=== PATIENT | male | born 1970 | race Two or more races ===

== ENCOUNTER 2017-11-26 18:43 | Observation (INO) | payer MEDICAID ==
[~2017-11-26] VITALS: Ht 167.6 cm; Wt 86.0 kg
[2017-11-26 19:21] LABS: BASOPHILS # (AUTO) 0.03 x10^3/uL (0-0.1); BASOPHILS % (AUTO) 0 % (0-1); EOSINOPHILS % (AUTO) 5 % (1-7); LYMPHOCYTES # (AUTO) 1.35 x10^3/uL (1-3.4); LYMPHOCYTES % (AUTO) 16 % (22-44); MD NO; MEAN CORPUSCULAR HEMOGLOBIN 32.1 pg (27.5-34.5); MEAN CORPUSCULAR HGB CONC 34.7 g/dL (33.2-36.2); MEAN CORPUSCULAR VOLUME 92.5 fL (81-97); MEAN PLATELET VOLUME 7.5 fL (7.4-10.4); MONOCYTES # (AUTO) 1.06 x10^3/uL (0.2-0.8); MONOCYTES % (AUTO) 12 % (2-9); NEUTROPHILS % (AUTO) 67 % (42-75); PLATELET COUNT 268 x10^3/uL (130-400); RED BLOOD COUNT 4.59 x10^6/uL (4.38-5.82); RED CELL DISTRIBUTION WIDTH 12.9 % (9.4-14.8)
[2017-11-26 19:29] LABS: ALANINE AMINOTRANSFERASE 41 U/L (12-78); ALBUMIN 3.3 g/dL (3.4-5.0); ANION GAP 9 mmol/L (5-15); CALCIUM 8.6 mg/dL (8.5-10.1); CHLORIDE 101 mmol/L (98-107); CREATININE 0.86 mg/dL (0.7-1.3)
[2017-11-26 19:30] LABS: ACETAMINOPHEN < 2 mcg/mL (10-30); SALICYLATE LEVEL < 1.7 mg/dL (2.8-20.0)
[2017-11-26 19:33] LABS: ALKALINE PHOSPHATASE 69 U/L (45-117); BILIRUBIN,TOTAL 0.4 mg/dL (0.2-1.0); TOTAL PROTEIN 7.8 g/dL (6.4-8.2)
[2017-11-26 19:37] LABS: MICROSCOPIC INDICATED
[2017-11-26 19:44] LABS: CULTURE INDICATED? NO
[2017-11-26 19:46] LABS: AMPHETAMINE SCREEN, URINE Negative (Negative); BARBITURATE SCREEN, URINE Negative (Negative); BENZODIAZEPINE SCREEN, URINE Negative (Negative); CANNABINOID SCREEN, URINE Negative (Negative); COCAINE SCREEN, URINE Negative (Negative); METHADONE SCREEN, URINE Negative (Negative); OPIATE SCREEN, URINE Negative (Negative)
[2017-11-26] MEDS ORDERED: ONDANSETRON ODT 4 MG PO PRN (23:30)
[2017-11-26] MEDS ORDERED: ACETAMINOPHEN 325 MG TABLET PO PRN (23:30)
[2017-11-26] MEDS ORDERED: POTASSIUM CHLORIDE 20 MEQ TAB.ER.PRT PO ONE (23:30)
[2017-11-26] MEDS ORDERED: TRAZ100T15 PO (23:37)
[2017-11-26] MEDS ORDERED: ZIPR20CA2 PO (23:37)
[2017-11-26] MEDS ORDERED: FLUO20CA19 PO (23:37)
[2017-11-26] MEDS ORDERED: POTASSIUM CHLORIDE 20 MEQ TAB.ER.PRT ONE (23:38)
[2017-11-26 23:49] VITALS: BP 151/95
[2017-11-27] MEDS: TRAZODONE 150MG TABLET PO SCH ×2 (00:24→20:43)
[2017-11-27 07:30] VITALS: BP 111/65
[2017-11-27] MEDS: AMLODIPINE 5 MG TABLET PO SCH (09:00)
[2017-11-27] MEDS: HALOPERIDOL 5 MG TABLET PO PRN ×2 (13:06→20:43)
[2017-11-27 20:18] VITALS: BP 120/68
[2017-11-28 07:47] VITALS: BP 127/89
[2017-11-28] MEDS: AMLODIPINE 5 MG TABLET PO SCH (09:14)
[2017-11-28 20:22] VITALS: BP 123/71
[2017-11-28] MEDS: HALOPERIDOL 5 MG TABLET PO PRN (20:22)
[2017-11-28] MEDS: TRAZODONE 150MG TABLET PO SCH (21:00)
[2017-11-29 07:08] VITALS: BP 134/94
[2017-11-29] MEDS: AMLODIPINE 5 MG TABLET PO SCH (07:49)
[2017-11-29] MEDS: HALOPERIDOL 5 MG TABLET PO PRN (11:36)
[2017-11-29 18:53] VITALS: BP 121/84
[2017-11-29] MEDS: TRAZODONE 150MG TABLET PO SCH (20:39)
[2017-11-30 08:25] VITALS: BP 138/90
[2017-11-30] MEDS: AMLODIPINE 5 MG TABLET PO SCH (08:55)
[2017-11-30 19:31] VITALS: BP 114/69
[2017-11-30] MEDS: TRAZODONE 150MG TABLET PO SCH (21:14)
[2017-12-01 07:39] VITALS: BP 112/76
[2017-12-01] MEDS: AMLODIPINE 5 MG TABLET PO SCH (08:11)
[2017-12-01] MEDS: HALOPERIDOL 5 MG TABLET PO PRN ×2 (08:12→21:11)
[2017-12-01 20:00] VITALS: BP 111/84
[2017-12-01] MEDS: TRAZODONE 150MG TABLET PO SCH (21:51)
== END 2017-12-02 03:40 ==
LOC: ED 20:55 → EDIP 22:50 → 3E 23:46
PROVIDERS: ADMIT Hospitalist; ATTEND Hospitalist
DX: R45.851 Suicidal ideations (principal); F32.9 Major depressive disorder, single episode, unspecified; E87.6 Hypokalemia; I10 Essential (primary) hypertension; Z59.0 Homelessness
CPT/HCPCS: 36415; 80053; 80307; 80329; 81001; 85025; 99285; G0378; Q0177; G0480

== ENCOUNTER 2018-01-04 12:51 | Observation (INO) | payer MEDICAID, OTHER ==
[~2018-01-04] VITALS: Ht 167.6 cm; Wt 88.0 kg
[~2018-01-04 12:51] MED LIST: FLUO20CA19 PO; TRAZ100T15 PO; ZIPR20CA2 PO
[2018-01-04] MEDS ORDERED: TRAZ150T62 PO (13:37)
[2018-01-04] MEDS ORDERED: NALT50TA PO (13:37)
[2018-01-04 13:52] LABS: BASOPHILS # (AUTO) 0.03 x10^3/uL (0-0.1); BASOPHILS % (AUTO) 0 % (0-1); EOSINOPHILS # (AUTO) 0.08 x10^3/uL (0-0.4); EOSINOPHILS % (AUTO) 1 % (1-7); LYMPHOCYTES # (AUTO) 2.31 x10^3/uL (1-3.4); LYMPHOCYTES % (AUTO) 26 % (22-44); MD NO; MEAN CORPUSCULAR HEMOGLOBIN 31.8 pg (27.5-34.5); MEAN CORPUSCULAR VOLUME 90.9 fL (81-97); MEAN PLATELET VOLUME 7.8 fL (7.4-10.4); MONOCYTES % (AUTO) 11 % (2-9); NEUTROPHILS # (AUTO) 5.42 x10^3/uL (1.8-6.8); NEUTROPHILS % (AUTO) 61 % (42-75); PLATELET COUNT 266 x10^3/uL (130-400); RED BLOOD COUNT 4.95 x10^6/uL (4.38-5.82); RED CELL DISTRIBUTION WIDTH 13.5 % (9.4-14.8)
[2018-01-04 14:02] LABS: ALBUMIN 4.2 g/dL (3.4-5.0); ANION GAP 7 mmol/L (5-15); CALCIUM 9.1 mg/dL (8.5-10.1); CHLORIDE 103 mmol/L (98-107); CREATININE 1.05 mg/dL (0.7-1.3)
[2018-01-04 14:05] LABS: ACETAMINOPHEN < 2 mcg/mL (10-30); SALICYLATE LEVEL < 1.7 mg/dL (2.8-20.0)
[2018-01-04 14:11] LABS: AMPHETAMINE SCREEN, URINE Negative (Negative); BARBITURATE SCREEN, URINE Negative (Negative); BENZODIAZEPINE SCREEN, URINE Negative (Negative); CANNABINOID SCREEN, URINE Negative (Negative); COCAINE SCREEN, URINE Negative (Negative); METHADONE SCREEN, URINE Negative (Negative); OPIATE SCREEN, URINE Negative (Negative)
[2018-01-04] MEDS ORDERED: POLYETHYLENE GLYCOL 17 GM PACKET PO PRN (19:00)
[2018-01-04] MEDS ORDERED: ONDANSETRON ODT 4 MG PO PRN (19:00)
[2018-01-04] MEDS ORDERED: TRAZODONE 50MG TABLET PO PRN (19:00)
[2018-01-04] MEDS ORDERED: TRAZODONE 150MG TABLET ONE (20:31)
[2018-01-04] MEDS ORDERED: ZIPRASIDONE 20MG CAPSULE ONE (20:31)
[2018-01-04] MEDS: ZIPRASIDONE 20MG CAPSULE PO SCH (20:36)
[2018-01-04] MEDS: TRAZODONE 150MG TABLET PO SCH (20:36)
[2018-01-05] MEDS ORDERED: ZIPRASIDONE 20MG CAPSULE ONE (09:44)
[2018-01-05] MEDS ORDERED: FLUOXETINE HCL 20 MG CAPSULE ONE (09:44)
[2018-01-05] MEDS: FLUOXETINE HCL 20 MG CAPSULE PO SCH (09:57)
[2018-01-05] MEDS: ZIPRASIDONE 20MG CAPSULE PO SCH ×2 (09:57→21:11)
[2018-01-05] MEDS: NALTREXONE HCL 50 MG TABLET PO SCH (09:57)
[2018-01-05 20:47] VITALS: BP 114/68
[2018-01-05] MEDS: TRAZODONE 150MG TABLET PO SCH (21:10)
[2018-01-06 07:59] VITALS: BP 113/65
[2018-01-06] MEDS: ZIPRASIDONE 20MG CAPSULE PO SCH ×2 (09:17→20:45)
[2018-01-06] MEDS: NALTREXONE HCL 50 MG TABLET PO SCH (09:17)
[2018-01-06] MEDS: FLUOXETINE HCL 20 MG CAPSULE PO SCH (09:17)
[2018-01-06 20:33] VITALS: BP 118/76
[2018-01-06] MEDS: TRAZODONE 150MG TABLET PO SCH (20:45)
[2018-01-07 07:50] VITALS: BP 117/80
[2018-01-07] MEDS: ZIPRASIDONE 20MG CAPSULE PO SCH ×2 (09:46→20:55)
[2018-01-07] MEDS: NALTREXONE HCL 50 MG TABLET PO SCH (09:46)
[2018-01-07] MEDS: FLUOXETINE HCL 20 MG CAPSULE PO SCH (09:46)
[2018-01-07] MEDS: ACETAMINOPHEN 325 MG TABLET PO PRN (19:31)
[2018-01-07 20:00] VITALS: BP 110/75
[2018-01-07] MEDS: TRAZODONE 150MG TABLET PO SCH (20:55)
[2018-01-08 08:06] VITALS: BP 116/76
[2018-01-08] MEDS: FLUOXETINE HCL 20 MG CAPSULE PO SCH (09:42)
[2018-01-08] MEDS: NALTREXONE HCL 50 MG TABLET PO SCH (09:42)
[2018-01-08] MEDS: ZIPRASIDONE 20MG CAPSULE PO SCH ×2 (09:42→20:52)
[2018-01-08] MEDS: ACETAMINOPHEN 325 MG TABLET PO PRN (12:56)
[2018-01-08 19:51] VITALS: BP 94/83
[2018-01-08 19:55] VITALS: BP 119/82
[2018-01-08] MEDS: TRAZODONE 150MG TABLET PO SCH (20:52)
[2018-01-09 07:45] VITALS: BP 127/84
[2018-01-09] MEDS: NALTREXONE HCL 50 MG TABLET PO SCH (08:32)
[2018-01-09] MEDS: ZIPRASIDONE 20MG CAPSULE PO SCH ×2 (08:32→20:27)
[2018-01-09] MEDS: FLUOXETINE HCL 20 MG CAPSULE PO SCH (08:32)
[2018-01-09] MEDS: ACETAMINOPHEN 325 MG TABLET PO PRN (19:34)
[2018-01-09 20:19] VITALS: BP 129/85
[2018-01-09] MEDS: TRAZODONE 150MG TABLET PO SCH (20:27)
[2018-01-10 07:50] VITALS: BP 111/78
[2018-01-10] MEDS: ZIPRASIDONE 20MG CAPSULE PO SCH (09:02)
[2018-01-10] MEDS: FLUOXETINE HCL 20 MG CAPSULE PO SCH (09:02)
[2018-01-10] MEDS: NALTREXONE HCL 50 MG TABLET PO SCH (09:02)
[2018-01-10] MEDS: ACETAMINOPHEN 325 MG TABLET PO PRN (09:17)
[2018-01-10] MEDS ORDERED: FLUO20CA19 PO (11:45)
[2018-01-10] MEDS ORDERED: TRAZ150T62 PO (11:45)
[2018-01-10] MEDS ORDERED: ZIPR20CA2 PO (11:45)
== END 2018-01-10 16:12 | disposition home or self-care (01) ==
LOC: ED 14:33 → EDIP 18:12 → 3E 01-05 20:43
PROVIDERS: ADMIT Hospitalist; ATTEND Hospitalist
DX: R45.851 Suicidal ideations (principal); F32.9 Major depressive disorder, single episode, unspecified; F10.21 Alcohol dependence, in remission; F20.9 Schizophrenia, unspecified; Z59.0 Homelessness; Z87.891 Personal history of nicotine dependence
CPT/HCPCS: 36415; 80048; 80307; 80329; 82040; 85025; 99285; G0378; G0480

== ENCOUNTER 2018-01-13 09:50 | Inpatient (IN) | payer MEDICAID, OTHER ==
[~2018-01-13] VITALS: Ht 167.6 cm; Wt 85.7 kg
[~2018-01-13 09:50] MED LIST changes: +NALT50TA PO; +TRAZ150T62 PO
[2018-01-13] MEDS ORDERED: SODIUM CHLORIDE 0.9% 1,000ML IVBOLUS ONE (10:30)
[2018-01-13] MEDS ORDERED: LORazepam 2 MG/ML, 1ML IVPush ONE (10:30)
[2018-01-13] MEDS ORDERED: ZIPRASIDONE 20 MG INJ IM ONE ×2 (10:30→10:35)
[2018-01-13] MEDS ORDERED: LORazepam 2 MG/ML, 1ML ONE (10:35)
[2018-01-13 10:37] LABS: MEAN CORPUSCULAR HEMOGLOBIN 32.2 pg (27.5-34.5); MEAN CORPUSCULAR HGB CONC 35.3 g/dL (33.2-36.2); MEAN CORPUSCULAR VOLUME 91.2 fL (81-97); MEAN PLATELET VOLUME 7.5 fL (7.4-10.4); PLATELET COUNT 266 x10^3/uL (130-400); RED BLOOD COUNT 4.96 x10^6/uL (4.38-5.82); RED CELL DISTRIBUTION WIDTH 14.2 % (9.4-14.8)
[2018-01-13 10:50] LABS: ALANINE AMINOTRANSFERASE 36 U/L (12-78); ALBUMIN 4.6 g/dL (3.4-5.0); ANION GAP 15 mmol/L (5-15); CALCIUM 9.6 mg/dL (8.5-10.1); CHLORIDE 96 mmol/L (98-107); CREATININE 2.02 mg/dL (0.7-1.3)
[2018-01-13 10:52] LABS: ALKALINE PHOSPHATASE 76 U/L (45-117); BILIRUBIN,TOTAL 2.9 mg/dL (0.2-1.0)
[2018-01-13 10:54] LABS: ACETAMINOPHEN < 2 mcg/mL (10-30); SALICYLATE LEVEL < 1.7 mg/dL (2.8-20.0)
[2018-01-13] MEDS ORDERED: MIDAZOLAM 1 MG/ML, 2ML IVPush ONE (11:00)
[2018-01-13] MEDS ORDERED: MIDAZOLAM 1 MG/ML, 2ML ONE (11:19)
[2018-01-13 11:20] LABS: MD YES
[2018-01-13 11:21] LABS: BAND#(MANUAL) 1.41 x10^3/uL; BANDS%(MANUAL) 6 % (0-7); LYMPH#(MANUAL) 2.12 x10^3/uL (1-3.4); LYMPHS% (MANUAL) 9 % (22-44); MONOS#(MANUAL) 1.18 x10^3/uL (0.3-2.7); MONOS% (MANUAL) 5 % (2-9); SEGS% (MANUAL) 80 % (42-75)
[2018-01-13 11:22] LABS: <PLATELET ESTIMATE> ADEQUATE; <PLT MORPHOLOGY> NORMAL PLT MORPH; ANISOCYTOSIS 1+; POLYCHROMASIA 1+
[2018-01-13] MEDS ORDERED: HALOPERIDOL 5 MG/ML IM PRN ×2 (13:00)
[2018-01-13] MEDS ORDERED: ZIPRASIDONE 20 MG INJ IM PRN (13:00)
[2018-01-13] MEDS ORDERED: HALOPERIDOL 5 MG/ML IVPush PRN (13:00)
[2018-01-13] MEDS ORDERED: ACETAMINOPHEN 325 MG TABLET PO PRN (13:00)
[2018-01-13] MEDS ORDERED: LORazepam 2 MG/ML, 1ML IVPush PRN (13:00)
[2018-01-13 13:45] VITALS: BP 114/78
[2018-01-13] MEDS: HEPARIN 5,000 UNITS/ML, 1ML SQ SCH ×2 (14:49→21:00)
[2018-01-13] MEDS: LACTATED RINGERS 1,000 ML IV SCH (18:14)
[2018-01-13 20:45] VITALS: BP 132/86
[2018-01-14] MEDS: LACTATED RINGERS 1,000 ML IV SCH ×4 (00:27→16:33)
[2018-01-14 01:58] LABS: AMPHETAMINE SCREEN, URINE Positive (Negative); BARBITURATE SCREEN, URINE Negative (Negative); BENZODIAZEPINE SCREEN, URINE Negative (Negative); CANNABINOID SCREEN, URINE Negative (Negative); COCAINE SCREEN, URINE Negative (Negative); METHADONE SCREEN, URINE Negative (Negative); OPIATE SCREEN, URINE Negative (Negative)
[2018-01-14 04:55] VITALS: BP 136/84
[2018-01-14] MEDS: HEPARIN 5,000 UNITS/ML, 1ML SQ SCH ×3 (05:00→21:00)
[2018-01-14 06:13] LABS: BASOPHILS # (AUTO) 0.04 x10^3/uL (0-0.1); BASOPHILS % (AUTO) 0 % (0-1); EOSINOPHILS # (AUTO) 0.07 x10^3/uL (0-0.4); EOSINOPHILS % (AUTO) 1 % (1-7); LYMPHOCYTES # (AUTO) 1.63 x10^3/uL (1-3.4); LYMPHOCYTES % (AUTO) 16 % (22-44); MD NO; MEAN CORPUSCULAR HEMOGLOBIN 31.9 pg (27.5-34.5); MEAN CORPUSCULAR VOLUME 91.3 fL (81-97); MEAN PLATELET VOLUME 7.7 fL (7.4-10.4); MONOCYTES # (AUTO) 1.36 x10^3/uL (0.2-0.8); MONOCYTES % (AUTO) 14 % (2-9); NEUTROPHILS # (AUTO) 6.91 x10^3/uL (1.8-6.8); NEUTROPHILS % (AUTO) 69 % (42-75); PLATELET COUNT 201 x10^3/uL (130-400); RED BLOOD COUNT 4.23 x10^6/uL (4.38-5.82); RED CELL DISTRIBUTION WIDTH 13.9 % (9.4-14.8)
[2018-01-14 06:17] LABS: ALBUMIN 3.2 g/dL (3.4-5.0); ANION GAP 9 mmol/L (5-15); CALCIUM 8.2 mg/dL (8.5-10.1); CHLORIDE 103 mmol/L (98-107)
[2018-01-14 06:22] LABS: ALANINE AMINOTRANSFERASE 27 U/L (12-78); ALKALINE PHOSPHATASE 61 U/L (45-117); BILIRUBIN,TOTAL 2.1 mg/dL (0.2-1.0); CREATININE 0.89 mg/dL (0.7-1.3)
[2018-01-14 08:14] VITALS: BP 119/77
[2018-01-14 14:50] VITALS: BP 133/86
[2018-01-14 18:59] VITALS: BP 134/88
[2018-01-14 23:59] VITALS: BP 136/82
[2018-01-15] MEDS: LACTATED RINGERS 1,000 ML IV SCH ×3 (03:19→23:36)
[2018-01-15] MEDS: HEPARIN 5,000 UNITS/ML, 1ML SQ SCH ×3 (05:00→19:57)
[2018-01-15 06:10] LABS: BASOPHILS # (AUTO) 0.03 x10^3/uL (0-0.1); BASOPHILS % (AUTO) 1 % (0-1); EOSINOPHILS # (AUTO) 0.07 x10^3/uL (0-0.4); EOSINOPHILS % (AUTO) 1 % (1-7); LYMPHOCYTES # (AUTO) 1.55 x10^3/uL (1-3.4); LYMPHOCYTES % (AUTO) 25 % (22-44); MD NO; MEAN CORPUSCULAR HEMOGLOBIN 31.2 pg (27.5-34.5); MEAN CORPUSCULAR HGB CONC 34.4 g/dL (33.2-36.2); MEAN CORPUSCULAR VOLUME 90.9 fL (81-97); MEAN PLATELET VOLUME 7.6 fL (7.4-10.4); MONOCYTES # (AUTO) 0.93 x10^3/uL (0.2-0.8); MONOCYTES % (AUTO) 15 % (2-9); NEUTROPHILS # (AUTO) 3.73 x10^3/uL (1.8-6.8); NEUTROPHILS % (AUTO) 59 % (42-75); PLATELET COUNT 203 x10^3/uL (130-400); RED BLOOD COUNT 4.13 x10^6/uL (4.38-5.82); RED CELL DISTRIBUTION WIDTH 13.5 % (9.4-14.8)
[2018-01-15 06:21] LABS: ALANINE AMINOTRANSFERASE 24 U/L (12-78); ALBUMIN 2.9 g/dL (3.4-5.0); ANION GAP 4 mmol/L (5-15); CALCIUM 8.4 mg/dL (8.5-10.1); CHLORIDE 107 mmol/L (98-107); CREATININE 0.72 mg/dL (0.7-1.3)
[2018-01-15 06:24] LABS: ALKALINE PHOSPHATASE 49 U/L (45-117); BILIRUBIN,TOTAL 0.9 mg/dL (0.2-1.0); TOTAL PROTEIN 6.5 g/dL (6.4-8.2)
[2018-01-15 06:30] VITALS: BP 133/81
[2018-01-15 12:07] VITALS: BP 144/89
[2018-01-15 19:21] VITALS: BP 135/87
[2018-01-15] MEDS: LORazepam 2 MG/ML, 1ML IM PRN (19:56)
[2018-01-16 01:14] VITALS: BP 109/68
[2018-01-16] MEDS: HEPARIN 5,000 UNITS/ML, 1ML SQ SCH ×3 (05:00→21:02)
[2018-01-16 07:03] VITALS: BP 127/81
[2018-01-16 12:30] VITALS: BP 131/86
[2018-01-16] MEDS: LORazepam 2 MG/ML, 1ML IM PRN (18:20)
[2018-01-16 20:19] VITALS: BP 118/79
[2018-01-17 02:59] VITALS: BP 124/69
[2018-01-17] MEDS: HEPARIN 5,000 UNITS/ML, 1ML SQ SCH ×3 (05:15→21:43)
[2018-01-17 05:57] LABS: BASOPHILS # (AUTO) 0.03 x10^3/uL (0-0.1); BASOPHILS % (AUTO) 1 % (0-1); EOSINOPHILS # (AUTO) 0.18 x10^3/uL (0-0.4); EOSINOPHILS % (AUTO) 3 % (1-7); LYMPHOCYTES # (AUTO) 1.58 x10^3/uL (1-3.4); LYMPHOCYTES % (AUTO) 28 % (22-44); MD NO; MEAN CORPUSCULAR HEMOGLOBIN 31.3 pg (27.5-34.5); MEAN CORPUSCULAR HGB CONC 34.5 g/dL (33.2-36.2); MEAN CORPUSCULAR VOLUME 90.9 fL (81-97); MEAN PLATELET VOLUME 7.3 fL (7.4-10.4); MONOCYTES # (AUTO) 0.84 x10^3/uL (0.2-0.8); MONOCYTES % (AUTO) 15 % (2-9); NEUTROPHILS # (AUTO) 3.05 x10^3/uL (1.8-6.8); NEUTROPHILS % (AUTO) 54 % (42-75); PLATELET COUNT 286 x10^3/uL (130-400); RED BLOOD COUNT 4.73 x10^6/uL (4.38-5.82); RED CELL DISTRIBUTION WIDTH 13.2 % (9.4-14.8)
[2018-01-17 06:10] LABS: ANION GAP 6 mmol/L (5-15); CALCIUM 9.5 mg/dL (8.5-10.1); CHLORIDE 105 mmol/L (98-107)
[2018-01-17 06:12] LABS: CREATININE 0.86 mg/dL (0.7-1.3)
[2018-01-17 07:46] VITALS: BP 114/77
[2018-01-17 13:08] VITALS: BP 119/81
[2018-01-17 19:26] VITALS: BP 123/81
[2018-01-17] MEDS ORDERED: TRAZODONE 150MG TABLET PO SCH (21:00)
[2018-01-17] MEDS: ZIPRASIDONE 20MG CAPSULE PO SCH (21:43)
[2018-01-18 02:28] VITALS: BP 110/79
[2018-01-18] MEDS: HEPARIN 5,000 UNITS/ML, 1ML SQ SCH (05:00)
[2018-01-18] MEDS: ZIPRASIDONE 20MG CAPSULE PO SCH (07:54)
[2018-01-18 08:20] VITALS: BP 114/73
[2018-01-18] MEDS ORDERED: NALTREXONE HCL 50 MG TABLET PO SCH (09:00)
[2018-01-18] MEDS ORDERED: FLUOXETINE HCL 20 MG CAPSULE PO SCH (09:00)
== END 2018-01-18 13:15 | disposition home or self-care (01) | DRG 682 ==
LOC: ED 11:58 → EDIP 11:59 → ED 12:32 → 4EST 13:23 → DCLOUNGE 01-18 12:55
PROVIDERS: ADMIT Internal Medicine; ATTEND Internal Medicine
DX: N17.0 Acute kidney failure with tubular necrosis (principal); G93.40 Encephalopathy, unspecified; E86.0 Dehydration; F29 Unspecified psychosis not due to a substance or known physiological condition
CPT/HCPCS: 36415; 70450; 80048; 80053; 80307; 80329; 83735; 85025; 96372; 96374; J1644; J3486; G0480; J1630; J2060; J7030; J7120

== ENCOUNTER 2018-04-20 22:19 | Emergency (ER) | payer MEDICAID ==
[~2018-04-20] VITALS: Ht 167.6 cm; Wt 93.0 kg
[~2018-04-20 22:19] MED LIST changes: +TRAZ-137 PO; -TRAZ100T15 PO
[2018-04-20] MEDS ORDERED: LORazepam 1MG TABLET PO ONE (23:00)
[2018-04-20] MEDS ORDERED: LORazepam 1MG TABLET ONE (23:15)
[2018-04-20 23:26] LABS: ALBUMIN 3.4 g/dL (3.4-5.0); ANION GAP 10 mmol/L (5-15); CALCIUM 7.8 mg/dL (8.5-10.1); CHLORIDE 102 mmol/L (98-107); CREATININE 0.97 mg/dL (0.7-1.3); SALICYLATE LEVEL < 1.7 mg/dL (2.8-20.0)
[2018-04-20 23:27] LABS: ACETAMINOPHEN < 2 mcg/mL (10-30)
[2018-04-20 23:50] LABS: AMPHETAMINE SCREEN, URINE Negative (Negative); BARBITURATE SCREEN, URINE Negative (Negative); BENZODIAZEPINE SCREEN, URINE Negative (Negative); CANNABINOID SCREEN, URINE Negative (Negative); COCAINE SCREEN, URINE Negative (Negative); METHADONE SCREEN, URINE Negative (Negative); OPIATE SCREEN, URINE Negative (Negative)
[2018-04-20 23:55] LABS: BASOPHILS # (AUTO) 0.02 x10^3/uL (0-0.1); BASOPHILS % (AUTO) 0 % (0-1); EOSINOPHILS # (AUTO) 0.04 x10^3/uL (0-0.4); EOSINOPHILS % (AUTO) 1 % (1-7); LYMPHOCYTES # (AUTO) 2.51 x10^3/uL (1-3.4); LYMPHOCYTES % (AUTO) 32 % (22-44); MD NO; MEAN CORPUSCULAR HGB CONC 35.8 g/dL (33.2-36.2); MEAN CORPUSCULAR VOLUME 92.1 fL (81-97); MEAN PLATELET VOLUME 7.6 fL (7.4-10.4); MONOCYTES # (AUTO) 0.89 x10^3/uL (0.2-0.8); MONOCYTES % (AUTO) 11 % (2-9); NEUTROPHILS # (AUTO) 4.47 x10^3/uL (1.8-6.8); NEUTROPHILS % (AUTO) 56 % (42-75); PLATELET COUNT 242 x10^3/uL (130-400); RED BLOOD COUNT 4.38 x10^6/uL (4.38-5.82); RED CELL DISTRIBUTION WIDTH 13.2 % (9.4-14.8)
[2018-04-21 04:08] VITALS: BP 121/65
== END 2018-04-21 04:09 | disposition home or self-care (01) ==
LOC: ED 22:54
DX: F41.1 Generalized anxiety disorder (principal); F10.120 Alcohol abuse with intoxication, uncomplicated; F20.9 Schizophrenia, unspecified; Z79.899 Other long term (current) drug therapy
CPT/HCPCS: 36415; 71045; 80048; 80307; 80329; 82040; 85025; 93005; 99285; G0480